=== PATIENT | female | born 1980 | race African-American/Black ===

== ENCOUNTER 2021-09-21 22:36 | Emergency (ER) | payer MEDICAID ==
[~2021-09-21] VITALS: Ht 170.2 cm; Wt 77.0 kg
[2021-09-22] MEDS: TETANUS, DIPHTHERIA, PERTUSSIS VAC/PF 0.5ML (>10YR OLD) IM ONE (00:47)
[2021-09-22] MEDS: ACETAMINOPHEN 500MG TABLET PO ONE (03:20)
[2021-09-22 03:30] VITALS: BP 128/77
[2021-09-22] MEDS: BACITRACIN/POLYMYXIN B SULFATE OINT 15GM TOP ONE (03:34)
== END 2021-09-22 03:40 | disposition home or self-care (01) ==
LOC: ER 22:36
DX: S01.01XA Laceration without foreign body of scalp, initial encounter (principal); V49.49XA Driver injured in collision with other motor vehicles in traffic accident, initial encounter; Y93.89 Activity, other specified; Y92.488 Other paved roadways as the place of occurrence of the external cause
CPT/HCPCS: 12001; 90471; 90715; 99284

== ENCOUNTER 2021-09-30 11:33 | Emergency (ER) | payer MEDICAID ==
[~2021-09-30] VITALS: Ht 167.6 cm; Wt 77.0 kg
[2021-09-30 12:56] VITALS: BP 116/75
== END 2021-09-30 12:57 | disposition home or self-care (01) ==
LOC: ER 11:33
DX: S01.01XD Laceration without foreign body of scalp, subsequent encounter (principal); Z48.02 Encounter for removal of sutures; Z98.890 Other specified postprocedural states; X58.XXXD Exposure to other specified factors, subsequent encounter
CPT/HCPCS: 99281

== ENCOUNTER 2025-03-27 19:38 | Emergency (ER) | payer MEDICAID, OTHER ==
[~2025-03-27] VITALS: Ht 165.1 cm; Wt 73.0 kg
[2025-03-27 20:00] VITALS: PULSE 96; TEMP 36.2; O2SAT 100
[2025-03-27] MEDS: ACETAMINOPHEN 325MG TABLET PO ONE (21:17)
[2025-03-27 21:23] VITALS: BP 118/71; RESP 18
[2025-03-27] MEDS: LIDOCAINE 5% PATCH TOP SCH (21:23)
[2025-03-27] MEDS ORDERED: NAPR-1176 MT (21:45)
[2025-03-27] MEDS ORDERED: LIDO-53 TP (21:45)
== END 2025-03-27 22:14 | disposition home or self-care (01) ==
LOC: ER 19:38
DX: M25.531 Pain in right wrist (principal); M25.551 Pain in right hip; Z79.1 Long term (current) use of non-steroidal anti-inflammatories (NSAID); Z79.899 Other long term (current) drug therapy; Z98.890 Other specified postprocedural states; V89.2XXA Person injured in unspecified motor-vehicle accident, traffic, initial encounter; Y93.89 Activity, other specified; Y92.410 Unspecified street and highway as the place of occurrence of the external cause; Y99.8 Other external cause status
CPT/HCPCS: 73110; 73502; 99284